=== PATIENT | male | born 1970 | race African-American/Black ===

== ENCOUNTER 2017-02-27 10:56 | Emergency (ER) | payer OTHER ==
[~2017-02-27] VITALS: Ht 185.4 cm; Wt 122.5 kg
[~2017-02-27 10:56] MED LIST: ALBUTEROL0.09 MG/A1 INH; ATIVAN0.5 M1 PO; CLARINEX5 M1 PO; DELTASONE20 MG PO; ENDOCET 325 MG-1 TA1 PO; FLEXERIL 5MG TAB5 MG PO; FLEXERIL10 MG PO; GUAIFENESIN-COD10 ML PO; HYDRODIURIL 2525 MG PO; IBUPROFEN200 M3 PO; IBUPROFEN800 M1 PO; MEDROL DOSEPAK1 PAC PO; MEDROL4 M2 PO; MOBIC15 MG PO; MOTRIN800 MG PO; NAPROSYN 500 M500 MG PO; NAPROSYN500 M1 PO; PERCOCET 325 MG1 TA2 PO; PERCOCET 5-3251 EACH PO; PROAIR HFA0.09 MG/Ac INH; PROAIR HFA8.5 GM INH; SYMBICORT 16010.2 GM INH; SYMBICORT 80-10.2 GM INH; TESSALON PERLE100 M1 PO; VENTOLIN HFA18 GM INH; VICODIN 5-3001 EACH PO; VICODIN5-300 PO; ZITHROMAX500 M2 PO
--- NOTE | 2017-02-27 11:44 | ED UPPER/LOWER EXTREMITY COMPL ---
History of Present Illness General Chief Complaint: Lower Extremity Injury Stated Complaint: CHRONIC R KNEE PAIN Source: patient, old records Exam Limitations: no limitations Vital Signs & Intake/Output Vital Signs & Intake/Output Vital Signs Date Time Temp Pulse Resp B/P Pulse O2 O2 Flow FiO2 Ox Delivery Rate 02/27 1258 97.8 90 22 152/80 96 Room Air 02/27 1118 97.0 101 20 96 Room Air Allergies Coded Allergies: tramadol (Severe, RESP DISTRESS 08/28/16) Reconcile Medications Albuterol Sulfate (Proair Hfa) 90 MCG HFA.AER.AD 2 PUF INH Q4-6 PRN PRN asthma Hydrochlorothiazide 25 MG TABLET 1 TAB PO DAILY BP (Reported) Ibuprofen (Advil Migraine) 200 MG CAPSULE 2 CAP PO PRN PAIN/INFLAMMATION ( Reported) Ibuprofen 800 MG TABLET 1 TAB PO TID pain Oxycodone HCl/Acetaminophen (Percocet 5-325 MG Tablet) 5 MG-325 MG TABLET 1 TAB PO BID PRN pain Triage Note: PT TO ED C/O RIGHT KNEE PAIN X 2 WEEKS. STATES HE WAS AT WORK THIS AM AND HEARD "A POP". TO RIGHT KNEE, AND PAIN HAS BEEN WORSE SINCE. 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 HAS BEEN TAKING MOTRIN X 2 WEEKS WITH NO RELIEF. STATES ICE DOES HELP. DECLINING MEDS IN TRIAGE. Triage Nurses Notes Reviewed? yes Onset: Abrupt Duration: hour(s): (1), constant Timing: recent history Severity: moderate, severe Severity Numbers: 8 Pain/Injury Location: Right: Knee. Method of Injury: unknown Modifying Factors: Worsens With: movement. Associated Symptoms: swelling HPI: 46-year-old male with history of hypertension presents complaining of moderate to severe right anterior knee pain 8 out of 10 that is nonradiating after he heard a pop in his knee this morning while twisting. The patient states over the past 2 weeks she's had intermittent swelling and pain to the knee, and states over the past several months she's had intermittent episodes of pain for which she has attempted to follow up with an orthopedist hours been unsuccessful secondary to insurance reasons. He denies any back hip foot or ankle pain. The pain is worse with movement of his knee, and bearing weight. Denies any numbness or tingling. He's been taking Tylenol Motrin without improvement he denies any swelling to his leg redness warmth fevers or chills no chest pain or shortness of breath Past History Travel History Traveled to [place] past 21 day No Medical History Any Pertinent Medical History? 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 No Review of Systems Review of Systems Constitutional: Reports: see HPI. All Other Systems: Reviewed and Negative Comments Review of systems: See HPI, All other systems negative. Constitutional, no chills no fever, no malaise HEENT: No visual changes no sore throat no congestion Cardiovascular: No chest pain , no palpitation Skin, no rashes, no change in skin Respiratory: No dyspnea no cough no sputum GI: No nausea no vomiting, no diarrhea Muscle skeletal: joint pain, joint swelling, no back pain, no neck pain, Neurologic: No numbness , no headache Psych: No stress Heme/endocrine: No bruising no bleeding Immunology: No lymphadenopathy Physical Exam Physical Exam General Appearance: well developed/nourished, no apparent distress, alert, awake Comments: Well-developed well-nourished patient in no apparent distress. HEENT: Atraumatic, extraocular motion intact Neck: Supple, FROM, Back: FROM, Cardiovascular: Regular rate and rhythms no murmurs rubs or gallops, Respiratory: No respiratory distress. Patient speaking in full complete sentences. Breath sounds clear to auscultation bilaterally: NO W/R/R Upper Extremities: full range of motion Hip/Pelvis: Atraumatic/Stable. FROM Knee: Atraumatic/stable. Limited range of motion secondary to pain there is no palpable defect, No joint swelling, no effusion. No laxity. Negative meggan/ anterior drawer test. The patient is able to plantar and dorsiflex the foot, he is able to straight leg raise Leg: Atraumatic. Nontender. No edema, 5 out of 5 strength in the lower extremity, normal dorsiflexion of great toe bilaterally, gross sensation is intact, patellar tendon reflex 2+ bilaterally. Ankle/Foot: Atraumatic/stable. Skin intact. FROM. No swelling, no effusion. No laxity on exam Pulses: Normal/equal DP/PT pulses bilaterally. Brisk cap refill Neuro: Alert and oriented x3 Skin: Warm & dry;No appreciable rash on exposed skin Psych: Mood affect normal, normal memory normal judgment. Progress Differential Diagnosis: cellulitis, compartment syndrome, contusion, dislocation , fracture, gout, sprain, tendon injury, PATELLAR TENDON RUPTURE Plan of Care: Orders Procedure Date/time Status XRY-KNEE COMPLETE RIGHT 02/27 1143 Active Patient is medicated Percocet here in the ER with improvement, I discussed with the patient at length all of their results. Leg immobilizer was applied I had an extensive conversation regarding need for close follow up with their primary care physician this week as well as return precautions. I answered all of their questions, they feel comfortable with the plan and follow- up care. I discussed the medications that they will receive with the patient. I gave them signs and symptoms that could indicate an adverse reaction. I have advised them to limit their activities until they can see how they respond to the medication. ([place],VIP[place]) Diagnostic Imaging: Viewed by Me: Radiology Read. Discussed w/RAD: Radiology Read. Radiology Impression: PATIENT: CARIN HORTON PRESENT AGE: 46 PATIENT ACCOUNT NO: [id number] : 72 LOCATION: [facility] ORDERING PHYSICIAN: VIPIN LAURENT SERVICE DATE: 02/27/17 EXAM TYPE: RAD - XRY- KNEE COMPLETE RIGHT EXAMINATION: XR KNEE, RIGHT CLINICAL INFORMATION: Right knee pain. [place] pop. COMPARISON: 04/08/2016 TECHNIQUE: Four views of the right knee. FINDINGS: No acute fracture or subluxation. Compartmental joint spaces are maintained. No joint effusion. Prominent enthesophyte at the superior pole of the patella appears partially fragmented. This is similar to previous. IMPRESSION: No acute osseous abnormality. DICTATED BY: LEONEL CAMACHO MD DATE/TIME DICTATED:02/27/171218 SOLE ROUNDER:GILBERTO DATE/TIME TRANSCRIBED:02/27/171218 CONFIDENTIAL, DO NOT COPY WITHOUT APPROPRIATE AUTHORIZATION. <Electronically signed in Other Vendor System> SIGNED BY: LEONEL CAMACHO MD 02/27/17 1224 Departure Departure Time of Disposition: 1248 Disposition: HOME OR SELF CARE Condition: Stable Clinical Impression Primary Impression: Knee sprain Referrals: ALEX RODRIGUEZ APRN (PCP/Family) PARRISH JACOBSON MD Additional Instructions: Rest ice leg immobilizer as discussed. Follow-up with orthopedist Dr. jacobson. Ibuprofen 800 mg every 8 hours keep leg elevated, Percocet for breakthrough pain. Use caution as this is a narcotic and highly addictive no driving or drinking alcohol while taking. These prescriptions were sent to the [place] [facility] Departure Forms: Customer Survey General Discharge Information Prescriptions: Current Visit Scripts Ibuprofen 1 TAB PO TID #30 TAB Oxycodone HCl/Acetaminophen (Percocet 5-325 MG Tablet) 1 TAB PO BID PRN pain #10 TAB
[2017-02-27] MEDS ORDERED: ADVIL MIGRAINE200 M1 PO (12:18)
[2017-02-27] MEDS ORDERED: HYDROCHLOROTHIA25 M1 PO (12:18)
--- NOTE | 2017-02-27 12:24 | RADIOLOGY REPORT ---
EXAMINATION: XR KNEE, RIGHT CLINICAL INFORMATION: Right knee pain. [place] pop. COMPARISON: 04/08/2016 TECHNIQUE: Four views of the right knee. FINDINGS: No acute fracture or subluxation. Compartmental joint spaces are maintained. No joint effusion. Prominent enthesophyte at the superior pole of the patella appears partially fragmented. This is similar to previous. IMPRESSION: No acute osseous abnormality.
[2017-02-27] MEDS ORDERED: PERCOCET 5-3251 EACH PO (12:50)
[2017-02-27] MEDS ORDERED: IBUPROFEN800 M1 PO (12:50)
[2017-02-27 12:58] VITALS: BP 152/80
== END 2017-02-27 13:11 ==
LOC: ERH 10:56
DX: S83.91XA Sprain of unspecified site of right knee, initial encounter (principal); X58.XXXA Exposure to other specified factors, initial encounter; Y92.9 Unspecified place or not applicable; Y93.9 Activity, unspecified
CPT/HCPCS: 73562-RT; J2310

== ENCOUNTER 2017-05-03 08:20 | Emergency (ER) | payer OTHER ==
[~2017-05-03] VITALS: Ht 185.4 cm; Wt 115.7 kg
[~2017-05-03 08:20] MED LIST changes: +ADVIL MIGRAINE200 M1 PO; +HYDROCHLOROTHIA25 M1 PO
[2017-05-03] MEDS ORDERED: AMOXICILLIN875 M1 PO (09:06)
[2017-05-03] MEDS ORDERED: PROAIR HFA8.5 GM INH (09:06)
[2017-05-03] MEDS ORDERED: PREDNISONE20 M1 PO (09:06)
--- NOTE | 2017-05-03 09:07 | ED DYSPNEA/ASTHMA COMPLAINT ---
History of Present Illness General Chief Complaint: Dyspnea (COPD, CHF, Other) Stated Complaint: "I NEED A BREATHING TX" 02 AT [facility] 96% Source: patient, old records Exam Limitations: no limitations Vital Signs & Intake/Output Vital Signs & Intake/Output Vital Signs Date Time Temp Pulse Resp B/P B/P Pulse O2 O2 Flow FiO2 Mean Ox Delivery Rate 05/03 0958 97.0 81 20 134/93 97 Room Air 05/03 0948 98 05/03 0910 97 05/03 0838 97.5 101 20 129/94 96 Room Air Allergies Coded Allergies: tramadol (Severe, RESP DISTRESS 08/28/16) Reconcile Medications Albuterol Sulfate (Proair Hfa) 90 MCG HFA.AER.AD 2-4 PUF INH Q4-6 PRN PRN shortness of breath Amoxicillin 875 MG TABLET 1 TAB PO BID sinusitis Hydrochlorothiazide 25 MG TABLET 1 TAB PO DAILY BP (Reported) Oxycodone HCl/Acetaminophen (Percocet 5-325 MG Tablet) 5 MG-325 MG TABLET 1-2 TAB PO Q6P PRN severe pain Prednisone 20 MG TABLET 1 TAB PO BID bronchospasm Triage Note: C/O SOB WITH COUGH, WHEEXZING, RAN OUT OF PRO AIR AND ALBUTEROL INHALERS. ALSO C/O SORE THROAT X 1 WEEK. Triage Nurses Notes Reviewed? yes Onset: Last week Duration: day(s):, constant, continues in ED, getting worse Timing: recent history Severity: moderate Activities at Onset: none Prior Episodes/Possible Cause: illness exposure Modifying Factors: Improves With: rest. Associated Symptoms: cough, fever, wheezing HPI: 1 week prior to admission patient complains of nasal congestion postnasal drip productive cough of yellow sputum with increasing wheezing. He also complains of chest pain with cough sinus headache pressure with chills fever. He denies nausea vomiting diarrhea abdominal pain dysuria rash bleeding. Past History Travel History Traveled to [place] past 21 day No Medical History Any Pertinent Medical History? 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 No Review of Systems Review of Systems Constitutional: Reports: see HPI, chills, fever, malaise. EENTM: Reports: see HPI, nasal pain, throat pain. Respiratory: Reports: see HPI, cough, short of breath, sputum production. Cardiovascular: Reports: see HPI, chest pain. GI: Reports: no symptoms. Genitourinary: Reports: no symptoms. Musculoskeletal: Reports: no symptoms. Skin: Reports: no symptoms. Neurological/Psychological: Reports: no symptoms. Hematologic/Endocrine: Reports: no symptoms. Immunologic/Allergic: Reports: no symptoms. All Other Systems: Reviewed and Negative Physical Exam Physical Exam General Appearance: well developed/nourished, alert, awake, anxious, mild distress, obese Head: atraumatic, normal appearance, tenderness (Frontal maxillary sinus) Eyes: Bilateral: normal appearance, PERRL, EOMI. Ears, Nose, Throat: normal pharynx, normal ENT inspection, hearing grossly normal Neck: normal inspection, supple, full range of motion, no midline tenderness Respiratory: normal breath sounds, chest non-tender, no respiratory distress, quiet respiration, lungs clear Cardiovascular: regular rate/rhythm, normal peripheral pulses, norml femoral pulses equa Peripheral Pulses: 4+ carotid (R), 4+ carotid (L) Gastrointestinal: normal bowel sounds, soft, non-tender, no organomegaly Extremities: normal inspection, normal capillary refill, normal range of motion, no edema Neurologic/Psych: no motor/sensory deficits, awake, alert, oriented x 3, normal gait, normal mood/affect, student development advisor II-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 No Severe Sepsis Present: No Septic Shock Present: No Progress Differential Diagnosis: asthma, bronchitis, pneumonia Plan of Care: Orders Procedure Date/time Status XRY-CHEST XRAY, PA AND LATERAL 05/03 904 Active Current Medications Sig/Graciela Start time Last Medication Dose Stop Time Status Admin Oxymetazoline HCl 2 SPRAY ONCE ONE 05/03 915 UNVr (Afrin) 05/03 916 Amoxicillin 1,000 MG ONCE ONE 05/03 900 UNVr (Amoxil) 05/03 901 Ibuprofen 600 MG ONCE ONE 05/03 900 UNVr (Motrin) 05/03 901 Prednisone 60 MG ONCE ONE 05/03 900 UNVr 05/03 0901 Diagnostic Imaging: Viewed by Me: Radiology Read. Discussed w/RAD: Radiology Read. Radiology Impression: Patchy opacity at the posterior costophrenic angle seen on the lateral view which is not well localized on the frontal view. This may represent atelectasis or pneumonia. Otherwise clear lungs. Initial ED EKG: none Departure Departure Time of Disposition: 904 Disposition: HOME OR SELF CARE Condition: Stable Clinical Impression Primary Impression: Pneumonia Qualifiers: Pneumonia type: due to unspecified organism Laterality: unspecified laterality Lung location: unspecified part of lung Qualified Code: J18.9 - Pneumonia, unspecified organism Secondary Impressions: Asthma Qualifiers: Asthma severity: moderate persistent Asthma complication type: with acute exacerbation Qualified Code: J45.41 - Moderate persistent asthma with ( acute) exacerbation Sinusitis Referrals: ALEX RODRIGUEZ APRN (PCP/Family) Additional Instructions: Afrin 2 sprays 2 times a day for 3 days Departure Forms: Customer Survey General Discharge Information RELEASE- WORK Prescriptions: Current Visit Scripts Prednisone 1 TAB PO BID #10 TAB Albuterol Sulfate (Proair Hfa) 2-4 PUF INH Q4-6 PRN PRN shortness of breath #1 INHAL Ref 5 Amoxicillin 1 TAB PO BID #20 TAB Oxycodone HCl/Acetaminophen (Percocet 5-325 MG Tablet) 1-2 TAB PO Q6P PRN severe pain #15 TAB Critical Care Note Critical Care Note Critical Care Time: non-applicable
--- NOTE | 2017-05-03 09:53 | RADIOLOGY REPORT ---
EXAMINATION: XR CHEST CLINICAL INFORMATION: Cough. Chest pain. COMPARISON: 09/20/2016 TECHNIQUE: 2 views of the chest were obtained. FINDINGS: The lungs are well expanded. On the lateral view, there is a patchy opacity seen posteriorly at the costophrenic angle. This is not well localized on the frontal view. No pleural effusion or edema. No pneumothorax. The cardiomediastinal silhouette is within normal limits. No acute osseous abnormality. IMPRESSION: Patchy opacity at the posterior costophrenic angle seen on the lateral view which is not well localized on the frontal view. This may represent atelectasis or pneumonia. Otherwise clear lungs.
[2017-05-03 09:58] VITALS: BP 134/93
[2017-05-03] MEDS ORDERED: PERCOCET 5-3251 EACH PO (10:03)
== END 2017-05-03 10:17 ==
LOC: ERH 08:20
DX: J18.9 Pneumonia, unspecified organism (principal); J45.909 Unspecified asthma, uncomplicated; Z87.891 Personal history of nicotine dependence
CPT/HCPCS: 1263

== ENCOUNTER 2017-12-19 12:22 | Emergency (ER) | payer OTHER ==
[~2017-12-19] VITALS: Ht 185.4 cm; Wt 127.0 kg
[~2017-12-19 12:22] MED LIST changes: +AMOXICILLIN875 M1 PO; +AUGMENTIN 875-1 EACH PO; +CHERATUSSIN AC118 M1 PO; +GUAIFENESIN CO PO; +MOBIC15 M1 PO; +NICOTINE PATCH1 EAC2 TOP; +PREDNISONE20 M1 PO; +PREDNISONE50 M1 PO; +PROVENTIL HFA6.7 GM INH
--- NOTE | 2017-12-19 13:21 | RADIOLOGY REPORT ---
EXAMINATION: XR ELBOW, RIGHT CLINICAL INFORMATION: History of fall, right elbow pain. COMPARISON: Right elbow done on 09/16/2016. TECHNIQUE: AP, lateral, and oblique views of the right elbow. FINDINGS: Dense ossification and soft tissue swelling are identified inseparable from and overlying the olecranon process of the ulna, seen on the lateral projection, consistent with calcific triceps tendinitis/tendinopathy, with or without superimposed bursitis. There is no underlying fracture or dislocation present. There is no joint effusion present. IMPRESSION: 1. No radiographic evidence of fracture and/or dislocation. 2. Calcific triceps tendinitis with or without superimposed bursitis.
--- NOTE | 2017-12-19 15:17 | ED UPPER/LOWER EXTREMITY COMPL ---
History of Present Illness General Chief Complaint: General Adult Stated Complaint: FALL R ELBOW PAIN Source: patient Exam Limitations: no limitations Vital Signs & Intake/Output Vital Signs & Intake/Output Vital Signs Date Time Temp Pulse Resp B/P B/P Pulse O2 O2 Flow FiO2 Mean Ox Delivery Rate 12/19 1549 93 24 172/88 96 12/19 1226 96.4 110 20 167/92 96 Room Air Allergies Coded Allergies: tramadol (Severe, RESP DISTRESS 08/28/16) Reconcile Medications Albuterol Sulfate (Proair Hfa) 90 MCG HFA.AER.AD 2 PUF INH Q4-6 PRN PRN WHEEZING Albuterol Sulfate (Proair Hfa) 90 MCG HFA.AER.AD 2-4 PUF INH Q4-6 PRN PRN shortness of breath Albuterol Sulfate (Proventil Hfa) 90 MCG HFA.AER.AD 2 PUF INH Q4 PRN shortness of breath Hydrochlorothiazide 25 MG TABLET 1 TAB PO DAILY BP (Reported) Ibuprofen 800 MG TABLET 1 TAB PO TID pain Nicotine (Nicotine Patch) 14 MG/24 HOUR PATCH.TD24 1 PAT TOP DAILY smoking cessation Oxycodone HCl/Acetaminophen (Percocet 5-325 MG Tablet) 5 MG-325 MG TABLET 1-2 TAB PO BID pain Triage Note: PT TO ED C/O RIGHT ELBOW PAIN S/P FALLING ON IT THIS AM. STATES HE SLIPPED AND FELL LANDING ON RIGHT ELBOW. DENIES HEADSTRIKE. MEDS. MEDICATED WITH MOTRIN IN TRIAGE. +CMS, +PULSES. Triage Nurses Notes Reviewed? yes Onset: Abrupt Duration: hour(s):, constant, continues in ED Timing: single episode today Pain/Injury Location: Right: Elbow. Method of Injury: direct blow, fall No Modifying Factors: none HPI: 47-year-old male comes into the emergency room for further evaluation of right elbow pain. Patient reports that he slipped outside on the ice and fell down on his right elbow. Sharp throbbing pain since then. Some associated swelling. Denies any injury or trauma no rales. Denies any other associated symptoms. Past History Travel History Traveled to [place] past 21 day No Medical History Any Pertinent Medical History? 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 No Review of Systems Review of Systems Constitutional: Reports: no symptoms. EENTM: Reports: no symptoms. Respiratory: Reports: no symptoms. Cardiovascular: Reports: no symptoms. Gastrointestinal/Abdominal: Reports: no symptoms. Genitourinary: Reports: no symptoms. Musculoskeletal: Reports: see HPI. Skin: Reports: no symptoms. Neurological/Psychological: Reports: no symptoms. Hematologic/Endocrine: Reports: no symptoms. Immunological: Reports: no symptoms. All Other Systems: Reviewed and Negative Physical Exam Physical Exam General Appearance: well developed/nourished, mild distress Head: atraumatic Eyes: Bilateral: normal appearance. Ears, Nose, Throat: normal ENT inspection, hearing grossly normal Neck: normal inspection Cardiovascular/Respiratory: no respiratory distress Back: normal inspection Elbow Right: bone tenderness, soft tissue tenderness, limited range of motion Neurologic/Tendon: normal sensation, normal motor functions, normal tendon functions, responds to pain, no evidence tendon injury, no pulse deficit Skin: intact, normal color, warm/dry Lymphatic: no anterior cervical ede Progress Differential Diagnosis: contusion, dislocation, fracture, gout, sprain, tendon injury Plan of Care: Orders Procedure Date/time Status Durable Medical Equipment 12/19 1520 Active Diagnostic Imaging: Viewed by Me: Radiology Read. Discussed w/RAD: Radiology Read. Radiology Impression: PATIENT: CARIN HORTON PRESENT AGE: 47 PATIENT ACCOUNT NO: [id number] : 72 LOCATION: [facility] ORDERING PHYSICIAN: Juancho LAURENT SERVICE DATE: 12/19/171224 EXAM TYPE: RAD - XRY- ELBOW 3 OR MORE VIEWS, R EXAMINATION: XR ELBOW, RIGHT CLINICAL INFORMATION: History of fall, right elbow pain. COMPARISON: Right elbow done on 09/16/2016. TECHNIQUE: AP, lateral, and oblique views of the right elbow. FINDINGS: Dense ossification and soft tissue swelling are identified inseparable from and overlying the olecranon process of the ulna, seen on the lateral projection, consistent with calcific triceps tendinitis/tendinopathy, with or without superimposed bursitis. There is no underlying fracture or dislocation present. There is no joint effusion present. IMPRESSION: 1. No radiographic evidence of fracture and/or dislocation. 2. Calcific triceps tendinitis with or without superimposed bursitis. DICTATED BY: Mitzy Galeana MD DATE/TIME DICTATED:1255 TSO:GILBERTO DATE/TIME TRANSCRIBED:12/19/171255 CONFIDENTIAL, DO NOT COPY WITHOUT APPROPRIATE AUTHORIZATION. <Electronically signed in Other Vendor System> SIGNED BY: Mitzy Galeana MD 12/19/17 1321 Departure Departure Disposition: HOME OR SELF CARE Condition: Stable Clinical Impression Primary Impression: Contusion of elbow, right Referrals: Massiel Monge APRN (PCP/Family) Gilda Moses MD Additional Instructions: Take Percocet and ibuprofen as prescribed. Rest. Ice. Follow-up with orthopedic doctor if not better in one week. Return if any other concerns. Please go over all results of today's visit with your primary care doctor. Contact your primary care doctor to let them know you were here in the emergency room. There may be nonspecific findings which may not be related to your visit today here in the emergency room but may require further evaluation and chronic monitoring by your primary care doctor. If you had a laceration today the chance of foreign body always remains. You should follow-up with your primary care doctor for recheck in 3-5 days for a wound check. If you had an x-ray done there is a chance that a fracture could have been missed on initial read and you should follow-up with your primary care doctor for repeat x-rays if symptoms persist. If your blood pressure was elevated here in the emergency room please have rechecked by [facility] primary care doctor within the next 48. If you were prescribed a narcotic here in the emergency room or any type of controlled substances you're not allowed to drive while taking this medication or operate any type of heavy machinery. Narcotics can make you feel lightheaded dizziness nausea and can cause constipation. 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 Thank you for choosing emergency room. Please return to the emergency room immediately if you have any other concerns worsening of symptoms. Departure Forms: Customer Survey General Discharge Information Prescriptions: Current Visit Scripts Oxycodone HCl/Acetaminophen (Percocet 5-325 MG Tablet) 1-2 TAB PO BID #15 TAB Ibuprofen 1 TAB PO TID #30 TAB Comments 12/19/2017 3:53:43 PM No evidence of acute fracture. No open skin. Patient treated as a contusion/ bronchitis. Follow-up with orthopedics last patient be as needed. Procedures Splinting Location: Right elbow Manual Alignment Performed: No Pre-Made Type: shoulder immobilizer Splint Applied By: splint applied by me Pre-Proc Neuro Vasc Exam: normal Post-Proc Neuro Vasc Exam: normal
[2017-12-19] MEDS ORDERED: PERCOCET 5-3251 EACH PO (15:19)
[2017-12-19] MEDS ORDERED: IBUPROFEN800 M1 PO (15:19)
[2017-12-19 15:49] VITALS: BP 172/88
== END 2017-12-19 15:50 ==
LOC: ERH 12:22
DX: S50.01XA Contusion of right elbow, initial encounter (principal); W00.0XXA Fall on same level due to ice and snow, initial encounter; Y93.01 Activity, walking, marching and hiking; Y92.9 Unspecified place or not applicable
CPT/HCPCS: 73080-RT